=== PATIENT | female | born 1940 | race Caucasian/White ===

== ENCOUNTER 2023-03-27 17:38 | Emergency (ER) | payer MEDICARE, OTHER ==
[~2023-03-27] VITALS: Ht 162.6 cm; Wt 68.1 kg
[~2023-03-27 17:38] MED LIST: AMLO-489; LOSA-39
[2023-03-27] MEDS ORDERED: SODIUM CHLORIDE 0.9% 500 ML IVB ONE (19:00)
[2023-03-27 19:23] LABS: Basophils # (auto) 0.1 10 ^3/uL (0-0.2); Basophils % (auto) 0.6 % (0.0-2.0); Eosinophils # (auto) 0.1 10 ^3/uL (0-0.8); Hematocrit 46.8 % (36.0-46.0); Hemoglobin 15.5 g/dL (12.2-16.2); Lymphocytes # (auto) 1.5 10 ^3/uL (0.4-5.4); Lymphocytes % (auto) 12.6 % (10.0-50.0); Mean Corpuscular Hemoglobin 30.5 pg (28.0-32.0); Mean Corpuscular Hgb Conc. 33.2 g/dL (32.0-36.0); Monocytes # (auto) 0.6 10 ^3/uL (0-1.3); Neutrophils # (auto) 9.5 10 ^3/uL (1.6-8.6); Neutrophils % (auto) 80.8 % (37.0-80.0); Red Blood Cells 5.09 10^6/uL (4.0-5.20); Red Cell Distribution Width 13.9 % (11.8-14.3); White Blood Cell 11.7 10^3/uL (4.4-10.8)
[2023-03-27 19:56] LABS: Potassium 4.8 mmol/L (3.5-5.1)
[2023-03-27 20:02] LABS: Albumin 3.7 g/dL (3.4-5.0); BUN/Creatinine Ratio 23.6 (10.0-20.0); Bilirubin, Total 0.7 mg/dL (0.2-1.0); Magnesium 2.7 mg/dL (1.6-2.6); Total Protein 7.5 g/dL (6.4-8.2)
[2023-03-27 21:38] LABS: Urine Amorphous Crystal FEW /hpf (None Seen); Urine Bacteria FEW /hpf (None Seen); Urine Blood Negative /uL (Negative); Urine Mucus FEW (None Seen); Urine Specific Gravity 1.028 (1.001-1.035); Urine WBC 30 /hpf (0 - 5)
[2023-03-27] MEDS ORDERED: prednisoLONE ACETATE 1% OPTH SUSP 5ML RIGHTEYE SCH (22:00)
[2023-03-27] MEDS ORDERED: ACETAMINOPHEN 325 MG TAB PO PRN (22:00)
[2023-03-27] MEDS ORDERED: ONDANSETRON HCL 4 MG/2 ML VIAL IV PRN (22:00)
[2023-03-27] MEDS ORDERED: levoFLOXacin 500MG 100 ML IV ONE (22:00)
[2023-03-27] MEDS ORDERED: PANTOPRAZOLE 40 MG TAB PO ONE (22:00)
[2023-03-27] MEDS ORDERED: METOCLOPRAMIDE HCL 5MG/ml INJ 2ml VIAL IV ONE (23:30)
[2023-03-28] MEDS ORDERED: prednisoLONE ACETATE 1% OPTH SUSP 5ML RIGHTEYE SCH
[2023-03-28 01:15] VITALS: BP 154/80
[2023-03-28] MEDS ORDERED: levoFLOXacin 500MG 100 ML IV SCH (10:00)
[2023-03-28] MEDS ORDERED: amLODIPine BESYLATE 5 MG TAB PO SCH (10:00)
[2023-03-28] MEDS ORDERED: PANTOPRAZOLE 40 MG TAB PO SCH (10:00)
[2023-03-28] MEDS ORDERED: LOSARTAN POTASSIUM 50 MG TAB PO SCH (10:00)
== END 2023-03-28 01:30 | disposition short-term general hospital (02) ==
LOC: ER 17:38 → EDBD 17:38 → ER 03-28 01:30
DX: K80.20 Calculus of gallbladder without cholecystitis without obstruction (principal); R53.1 Weakness; E78.5 Hyperlipidemia, unspecified; I10 Essential (primary) hypertension; Z88.0 Allergy status to penicillin; Z90.710 Acquired absence of both cervix and uterus; Z20.822 Contact with and (suspected) exposure to COVID-19
CPT/HCPCS: 36415; 74176; 76705; 80053; 81001; 83735; 85025; 87426; 96361; 96365; 96375; 99285; J1956; J2765; J7030